=== PATIENT | female | born 1985 | race Caucasian/White ===

== ENCOUNTER 2017-07-01 12:17 | Emergency (ER) | payer MEDICAID, OTHER ==
[~2017-07-01] VITALS: Ht 162.6 cm; Wt 81.5 kg
[2017-07-01 12:40] VITALS: BP 116/59
[2017-07-01] MEDS ORDERED: PNV1TABL76 MT (12:46)
== END 2017-07-01 15:34 | disposition left against medical advice (07) ==
LOC: ER 12:59
DX: O26.851 Spotting complicating pregnancy, first trimester (principal); Z3A.01 Less than 8 weeks gestation of pregnancy; Z53.21 Procedure and treatment not carried out due to patient leaving prior to being seen by health care provider